=== PATIENT | female | born 1965 | race Caucasian/White ===

== ENCOUNTER 2017-01-05 06:17 | Day surgery (SDC) | payer MEDICAID, OTHER ==
[~2017-01-05] VITALS: Ht 160 cm; Wt 67.9 kg
[~2017-01-05 06:17] MED LIST: IBUP-1542 PO
[2017-01-05 07:05] VITALS: Ht 160 cm; Wt 67.9 kg
[2017-01-05 07:56] VITALS: BP 132/84; PULSE 64; RESP 22
[2017-01-05] MEDS ORDERED: FENTAnyl 50 MCG/ML VIAL ONE (08:43)
[2017-01-05] MEDS ORDERED: MIDAZOLAM 1 MG/ML 2 ML INJ ONE ×2 (08:43)
[2017-01-05 09:08] VITALS: BP 102/70; RESP 20
--- NOTE | 2017-01-05 09:44 | GILP ---
DATE OF PROCEDURE: 01/05/2017 NAME OF PROCEDURE: Colonoscopy. SURGEON: Patt Sheikh MD PREOPERATIVE DIAGNOSIS: Screening colonoscopy. POSTOPERATIVE DIAGNOSES: 1. Colonoscopy all the way to the cecum. 2. Internal hemorrhoids. 3. No colon neoplasm was identified. INDICATION FOR THE PROCEDURE: Ms. Lanie Easley is a 51-year-old female patient who was scheduled fo r screening colonoscopy. The procedure and possible complications were well explained to the patient. The patient understood and consented to the procedure. DESCRIPTION OF PROCEDURE: Under the influence of fentanyl and Versed, the colonoscope was carefully introduced in the rectum, and under direct vision, it was advanced all the way to the cecum. FINDINGS: The patient had internal hemorrhoids. No colon neoplasm was identified. The patient tolerated the procedure very well, and there was no complication from the procedure. At the end of the procedure, she was awake with stable vital signs, and she was discharged home to the care of her family. IMPRESSION: 1. Colonoscopy all the way to the cecum. 2. Internal hemorrhoids. 3. No colon neoplasm was identified. PLAN: Next screening colonoscopy in 10 years. Dictated By: PATT AL/YINKA Conf#: [id number] DID#: [id number] CC: Kaleb Tony MD;*EndCC*
== END 2017-01-05 12:44 | disposition home or self-care (01) ==
LOC: GIL 06:17
PROVIDERS: ATTEND Internal Medicine Gastroenterology
DX: Z12.11 Encounter for screening for malignant neoplasm of colon (principal); K64.8 Other hemorrhoids
CPT/HCPCS: 45378; J2250; J3010; Z7610